=== PATIENT | male | born 1950 | race Caucasian/White ===

== ENCOUNTER 2018-02-21 09:16 | Emergency (ER) | payer BC ==
[2018-02-21 09:31] VITALS: BP 137/90
--- NOTE | 2018-02-21 10:11 | UC ---
Cardiac HPI - HPI Summary HPI Summary: Pt presents with left rib pain for the last 2-3 days. He tells me that he gets this a few times a year. His mother is in a wheelchair and he does a lot of lifting and carrying of her things. About 3 days ago he felt a pull in his left rib area - still persisting today. Has not taken anything OTC. Says in the past he was given muscle relaxers, which worked great. Denies dizziness, headache, chest pain, SOB, abdominal pain, n/v/d/c. - History of Current Complaint Chief Complaint: UCGeneralIllness Stated Complaint: PAIN IN RIB AREA Time Seen by Provider: 02/21/18 10:11 Hx Obtained From: Patient Onset/Duration: Sudden Onset Initial Severity: Severe Current Severity: Severe Pain Intensity: 8 Aggravating Factor(s): Movement - Allergy/Home Medications Allergies/Adverse Reactions: Allergies Allergy/AdvReac Type Severity Reaction Status Date / Time No Known Allergies Allergy Verified 02/21/18 09:26 Home Medications: Home Medications Atorvastatin* [Lipitor 40 MG*] 40 mg PO DAILY 02/21/18 [History Confirmed ] PMH/Surg Hx/FS Hx/Imm Hx Endocrine History: Dyslipidemia - Surgical History Surgical History: Yes Surgery Procedure, Year, and Place: deviated septum - Family History Known Family History: Positive: Cardiac Disease, Hypertension - Social History Lives: With Family Alcohol Use: None Substance Use Type: None Smoking Status (MU): Never Smoked Tobacco Review of Systems Constitutional: Negative Skin: Negative Respiratory: Negative Cardiovascular: Negative Gastrointestinal: Negative Neurovascular: Negative Musculoskeletal: Other: - Left rib pain Neurological: Negative Psychological: Negative All Other Systems Reviewed And Are Negative: Yes Physical Exam - Summary Physical Exam Summary: GENERAL: NAD. WDWN. No pain distress. SKIN: No rashes, sores, ulcers, masses, lesions. NECK: Supple. Nontender. No lymphadenopathy. CHEST: CTAB. No r/r/w. No accessory muscle use. Breathing comfortably and in no distress. CV: RRR. Without m/r/g. MSK: TTP over 6-7th intercostal space and pec major. FROM b/l UE - pain is reproduced with shoulder flexion and adduction. 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 No edema or obvious bony deformities. NEURO: Alert. Sensations intact hand and all fingers. PSYCH: Age appropriate behavior. Triage Information Reviewed: Yes Vital Signs: Initial Vital Signs Temp 97.4 F 02/21/18 09:28 Pulse 77 02/21/18 09:28 Resp 16 02/21/18 09:28 BP 137/90 02/21/18 09:28 Pulse Ox 100 02/21/18 09:28 - Assessment/Plan Course Of Treatment: Suspect pec major vs intercoastal muscle strain. Advised ibuprofen and ice to the area. Will rx for flexeril - Clinical Impression Provider Diagnoses: Muscle strain Discharge - Sign-Out/Discharge Documenting (check all that apply): Discharge - Discharge Plan Condition: Stable Disposition: HOME Prescriptions: Cyclobenzaprine TAB* [Flexeril 10 MG TAB*] 10 mg PO BID PRN #[id number] tab PRN Reason: Pain Patient Education Materials: Muscle Strain (DC) Referrals: Ashwini Waters MD [Primary Care Provider] - Additional Instructions: If you develop a fever, shortness of breath, chest pain, new or worsening symptoms - please call your PCP or go to the ED. Your blood pressure was high at todays visit. Please see your primary provider within 4 weeks for recheck and re-evaluation. - Billing Disposition and Condition Condition: STABLE Disposition: HOME
== END 2018-02-21 10:26 | disposition home or self-care (01) ==
LOC: UCEAST 09:16
DX: S29.019A Strain of muscle and tendon of unspecified wall of thorax, initial encounter (principal); X50.9XXA Other and unspecified overexertion or strenuous movements or postures, initial encounter; Y93.89 Activity, other specified; Y92.9 Unspecified place or not applicable; E78.5 Hyperlipidemia, unspecified
CPT/HCPCS: 99212; G0463

== ENCOUNTER 2019-07-01 16:20 | Emergency (ER) | payer BC ==
[2019-07-01 17:22] VITALS: BP 176/98
--- NOTE | 2019-07-01 18:44 | UC ---
Complaint Male HPI - HPI Summary HPI Summary: 68 year old male present with mass near anus x 3-4 days. [place] while wiping at toilet, no pain, no tenderness. Denies change to stooling. no fever, chills. Denies fecal incontinence or any problems with sphincter dysfunction. No prior issues/ complaints. - History of Current Complaint Chief Complaint: [place] Stated Complaint: PERSONAL Time Seen by Provider: 07/01/19 18:30 Hx Obtained From: Patient Onset/Duration: Sudden Onset, Lasting Days - 3-4 days Timing: Constant Severity Currently: None Pain Intensity: 0 Pain Scale Used: 0-10 Numeric Location: None - Allergies/Home Medications Allergies/Adverse Reactions: Allergies Allergy/AdvReac Type Severity Reaction Status Date / Time No Known Allergies Allergy Verified 07/01/19 17:22 PMH/Surg Hx/FS Hx/Imm Hx Previously Healthy: Yes - Surgical History Surgical History: Yes Surgery Procedure, Year, and Place: deviated septum - Family History Known Family History: Positive: Cardiac Disease, Hypertension - Social History Alcohol Use: None Substance Use Type: None Smoking Status (MU): Never Smoked Tobacco Review of Systems All Other Systems Reviewed And Are Negative: Yes Constitutional: Positive: Negative Skin: Positive: Other - mass near rectum Genitourinary: Positive: Negative Motor: Positive: Negative Neurovascular: Positive: Negative Musculoskeletal: Positive: Negative Is Patient Immunocompromised?: No Physical Exam Triage Information Reviewed: Yes Appearance: Well-Appearing, No Pain Distress, Well-Nourished Vital Signs: Initial Vital Signs Temp 99.0 F 07/01/19 17:18 Pulse 98 07/01/19 17:18 Resp 16 07/01/19 17:18 BP 176/98 07/01/19 17:18 Pulse Ox 98 07/01/19 17:18 Vital Signs Reviewed: Yes Eyes: Positive: Conjunctiva Clear ENT: Positive: Hearing grossly normal Musculoskeletal Exam: Normal Musculoskeletal: Positive: Other: - good rectal tone Neurological Exam: Normal Neurological: Positive: Other: - SITLT around anus Psychological Exam: Normal Skin Exam: Normal Skin: Positive: Other - residual stool noted around anus with a small piece of solid stool noted at 6 position attached to hair. Removed with wet gauze, area cleaned. MInimal irritation around anus without drianage or tenderness to palpation. no LAD Complaint Male Course/Dx - Course Course Of Treatment: Poor hygiene leading to fecal collection in hair, discussed proper wiping technique. Denies incontinence - Differential Dx/Diagnosis Provider Diagnosis: Poor hygiene Discharge - Sign-Out/Discharge Documenting (check all that apply): Patient Departure All imaging exams completed and their final reports reviewed: No Studies - Discharge Plan Condition: Good Disposition: HOME Referrals: Ashwini Waters MD [Primary Care Provider] - Additional Instructions: Poor hygiene around rectum - Please use baby wipes or adult wet wipes to clean after bowel motions. - Continue to monitor area for pain, tenderness- return if occurs. - Billing Disposition and Condition Condition: GOOD Disposition: Home - Attestation Statements Provider Attestation: Per institutional requirements, I have reviewed the chart, however, I was not consulted specifically or made aware of this patient by the midlevel provider. I did not personally evaluate, interact with , or disposition this patient.
== END 2019-07-01 18:50 | disposition home or self-care (01) ==
LOC: UCEAST 16:20
DX: R46.0 Very low level of personal hygiene (principal)
CPT/HCPCS: 99211; G0463